=== PATIENT | male | born 2000 | race Hispanic/Latino ===

== ENCOUNTER → 2025-02-02 15:14 | Outpatient (CLI) | payer OTHER, SELFPAY ==
--- NOTE | 2025-02-02 15:19 | DI.US.S_ITS ---
PROCEDURE: US ABDOMEN LIMITED INDICATIONS: RIGHT FLANK LUMP TECHNIQUE: Real-time focused scanning was performed of the abdomen, with image documentation. COMPARISON: None. FINDINGS: 3.0 x 2.8 x 1.0 centimeter slightly echogenic mass in the subcutaneous fat of the right flank corresponds to clinically palpable lesion. Doppler evaluation demonstrates no significant vascularity associated with the lesion. IMPRESSION: Probable 3.0 x 2.8 x 1.0 centimeter lipoma in the region of clinical interest. Recommend correlation with physical findings. Decision to biopsy lesions should be based on clinical assessment. Dictated by: Svetlana Cobian MD, PhD on 02/03/2025 at 9:49 Approved by: Svetlana Cobian MD, PhD on 02/03/2025 at 9:51
== END ==
LOC: US 15:17
PROVIDERS: Referring Provider Nurse Practitioner Family; Visit Provider Nurse Practitioner Family
DX: D48.5 Neoplasm of uncertain behavior of skin (principal)
CPT/HCPCS: 76705